=== PATIENT | female | born 1940 | race Caucasian/White ===

== ENCOUNTER 2017-07-23 05:48 | Day surgery (SDC) | payer MEDICARE, BC ==
[2017-07-23] VITALS (23 sets, daily range): BP systolic 97–159; BP diastolic 40–90; PULSE 53–82; RESP 17–26; Ht 162.6 cm; Wt 49.6 kg
[~2017-07-23] VITALS: Ht 162.6 cm; Wt 49.6 kg
[2017-07-23] MEDS ORDERED: LACTATED RINGER'S 1,000 ML IV SCH (06:00)
[2017-07-23] MEDS ORDERED: GABAPENTIN 300 MG CAP PO ONE (06:00)
[2017-07-23] MEDS ORDERED: traMADol 50 MG TAB PO ONE (06:00)
[2017-07-23] MEDS ORDERED: BUPIVACAINE 0.5% (SDV) 30 ML, morphine SULFATE (PF) 8 MG, EPINEPHrine 0.3 MG, KETOROLAC... IRR SCH ×7 (06:00)
[2017-07-23] MEDS ORDERED: CEFAZOLIN 2 GM/50 ML (PMX) 50 ML IVPB ONE (06:00)
[2017-07-23] MEDS ORDERED: DEXAMETHASONE 1 MG TAB PO ONE (06:00)
[2017-07-23] MEDS ORDERED: TRANEXAMIC ACID 1,000 MG in SOD CHLORIDE 0.9% 100 ML IVPB ONE (06:00)
[2017-07-23] MEDS ORDERED: PROPOFOL 20 ML ONE (06:45)
[2017-07-23] MEDS ORDERED: METOCLOPRAMIDE 10 MG INJ ONE (06:46)
[2017-07-23] MEDS ORDERED: MIDAZOLAM 1 MG/ML 2 ML INJ ONE (06:46)
[2017-07-23] MEDS ORDERED: FENTAnyl 50 MCG/ML VIAL ONE (06:46)
[2017-07-23] MEDS ORDERED: THROMBIN 5000 UNIT VIAL ONE (06:48)
[2017-07-23] MEDS ORDERED: CA CHLORIDE 10% 10 ML SYRINGE ONE (06:48)
[2017-07-23] MEDS ORDERED: ROPIVACAINE 0.5 % 30 ML VIAL ONE (06:48)
[2017-07-23] MEDS ORDERED: POLYMYXIN/BACITRACIN 1L IRRIG ONE (06:48)
--- NOTE | 2017-07-23 06:51 | HPN ---
Date/Time of Note Date/Time of Note DATE: 07/23/17 TIME: 06:51 Interval H&P Admission Note Pt. seen H&P reviewed: No system changes ARMANDO LAZAR MD Jul 23, 2017 06:51
[2017-07-23] MEDS ORDERED: BUPIVACAINE 0.5%/EPI (SDV) 10 ML INJ ONE (06:53)
[2017-07-23] MEDS ORDERED: hydrALAzine 20 MG INJ ONE (07:17)
[2017-07-23] MEDS ORDERED: ONDANSETRON 4 MG INJ ONE ×2 (07:20→10:01)
[2017-07-23] MEDS ORDERED: METOCLOPRAMIDE 10 MG INJ IV PRN (07:30)
[2017-07-23] MEDS ORDERED: ONDANSETRON 4 MG INJ IV PRN ×2 (07:30→09:00)
[2017-07-23] MEDS ORDERED: DIPHENHYDRAMINE 50 MG INJ IV PRN ×2 (07:30→09:00)
[2017-07-23] MEDS ORDERED: LABETALOL HCL 20MG INJ IV PRN (07:30)
[2017-07-23] MEDS ORDERED: hydrALAzine 20 MG INJ IV PRN (07:30)
[2017-07-23] MEDS ORDERED: MEPERIDINE 25 MG INJ IV PRN (07:30)
[2017-07-23] MEDS ORDERED: HYDROmorphONE (0.2 MG/ML) 10ML SYG IV PRN ×3 (07:30)
[2017-07-23] MEDS ORDERED: TOBRAMYCIN 1.2 GM POWDER ONE (07:35)
[2017-07-23] MEDS ORDERED: OXYCODONE/ACETAMINOPHEN (5/325) TAB PO PRN ×2 (09:00)
[2017-07-23] MEDS ORDERED: MAGNESIUM HYDROXIDE 30ML CUP PO PRN (09:00)
[2017-07-23] MEDS ORDERED: morphine 4 MG/ML VIAL IV PRN (09:00)
[2017-07-23] MEDS ORDERED: morphine 2 MG INJ IV PRN (09:00)
[2017-07-23] MEDS ORDERED: KETOROLAC 15 MG INJ IV PRN (09:00)
[2017-07-23] MEDS ORDERED: ACETAMINOPHEN 500 MG TAB PO PRN (09:00)
[2017-07-23] MEDS ORDERED: ZOLPIDEM 5 MG TAB PO PRN (09:00)
--- NOTE | 2017-07-23 09:19 | OPR ---
Date/Time of Note Date/Time of Note DATE: 07/23/17 TIME: 09:12 Operative Report Procedure Date: Jul 23, 2017 Preoperative Diagnosis Right shoulder primary arthritis Postoperative Diagnosis Right shoulder primary arthritis Operation Performed Right total shoulder arthroplasty Surgeon: ARMANDO LAZAR MD Asset Protection Assistant: ALOK REY MD Anesthesia Type: general Estimated Blood Loss: 10 - 50 ml's Transfusion Required: no Pt Condition Post Procedure: stable Disposition: PACU Procedure Description CHEF & OWNER SURGEON: Alok Rey MD was asked to be present for this case at my request. Assistance was necessary as a result of the highly technical nature of this operation. When performing an open total shoulder replacement, it is critical to have a trained creative assistant who is an expert in handling the extremity and assisting the surgeon in tasks such as suture management and knot-tying techniques as well as implants. This assistance cannot be performed by a electroplating technician, as it is considered an integral part of the procedure and the creative assistant should be compensated for their time. PROCEDURE IN DETAIL: Following the administration of general anesthesia supplemented with a peripheral nerve block for postoperative pain control, the patient was examined under anesthesia. Examination of the right shoulder revealed very significant stiffness including a forward flexion of about 100 abduction 90 maximal external rotation 90 with severe crepitus. The patient was then placed in the beach chair position. Sterile prep and drape was then undertaken. An extended deltopectoral incision was then carried through the interval exposing the conjoined tendon and retracting it medially. The subscapularis was detached. THe biceps tendon was seen to have moderate inflammation. The intraarticular portion was released and the tendon was tenodesed to the groove with #2 sutures. THe joint had severe DJD with multiple loose bodies and large osteophytes. The superior cuff was normal. THe humerus was osteotomized following osteophyte remova. The glenoid was then exposed. The glenoid was prepared for a Depuy anchor peg glenoid, small size. The actual component was then implanted with solid fixation with cement. The humerus was then prepared up to a 14 mm Depuy component with solid fixation. A 40 mm x 15 mm humeral head was applied with solid fixation. THe subscapularis was re-approximated with #2 Permanent sutures that were passed around the humeral component. A water-tight closure was completed. The arm was taken through full range of motion with no evident instability. The joint was then thoroughly irrigated, the deep tissues were approximated using #1 suture followed by closure of the deep layer using 2-0 Monocryl. The skin was closed using 4-0 Monocryl suture, and a waterproof dressing. An Ultrasling was then applied. The patient was awakened and transported to the recovery room in stable condition. Estimated blood loss for this procedure was [50 cc]. Radiographs will be obtained in the recovery room. ARMANDO LAZAR MD Jul 23, 2017 09:19
--- NOTE | 2017-07-23 09:21 | PDOCDIS ---
Discharge Instructions DIAGNOSIS Discharge Diagnosis Right shoulder arthritis CONDITION Patient Condition: Good HOME CARE INSTRUCTIONS: Diet Instructions: Regular ACTIVITY: Activity Restrictions: Slowly Increase Activity Keep Limb Elevated Bathing Restrictions: Shower FOLLOW UP/APPOINTMENTS Follow-up Plan Two weeks SCHOOL/WORK RELEASE May return to School/Work with: With Restrictions School/Work Release Comment: five pound table top usage for six weeks ARMANDO LAZAR MD Jul 23, 2017 09:20
--- NOTE | 2017-07-23 09:47 | RADRPT ---
PROCEDURE: XR Shoulder. CLINICAL INDICATION: Postop. Follow-up. Status post right shoulder arthroplasty. TECHNIQUE: 2 views of the right shoulder are available for review. COMPARISON: None available FINDINGS: Right shoulder prosthesis is identified. Alignment is anatomic. Postsurgical changes are seen. Ap pearances are appropriate. IMPRESSION: 1. Appropriate appearances with anatomic alignment, status post right shoulder arthroplasty. RPTAT: HMJB .Rodrigo Green MD, MD Date Time Electronically viewed and signed by .Rodrigo Green MD, on 07/23/2017 09:46 .B/
[2017-07-23] MEDS ORDERED: TRANEXAMIC ACID 1,000 MG in SOD CHLORIDE 0.9% 100 ML IV SCH (10:00)
[2017-07-23] MEDS ORDERED: HYDROmorphONE 2 MG/ML SYG ONE (10:01)
[2017-07-23] MEDS: SENNA/DOCUSATE NA (8.6MG/50MG) TAB PO SCH ×3 (10:30→21:49)
[2017-07-23] MEDS: DEXAMETHASONE 2 MG TAB PO SCH ×3 (12:00→23:53)
[2017-07-23] MEDS: CEFAZOLIN 1 GM/50 ML (PMX) 50 ML IVPB SCH ×2 (12:24→19:03)
[2017-07-23] MEDS ORDERED: GABAPENTIN 300 MG CAP PO SCH (21:00)
[2017-07-24 00:07] VITALS: BP 91/54; RESP 18
[2017-07-24] MEDS: CEFAZOLIN 1 GM/50 ML (PMX) 50 ML IVPB SCH (02:44)
[2017-07-24] MEDS ORDERED: OXYCODONE/ACETAMINOPHEN (5/325) TAB PO PRN ×3 (03:07→08:30)
[2017-07-24 05:36] VITALS: BP 90/45; PULSE 55; RESP 18
[2017-07-24] MEDS: DEXAMETHASONE 2 MG TAB PO SCH (05:50)
--- NOTE | 2017-07-24 06:43 | PN ---
Date/Time of Note Date/Time of Note DATE: 07/24/17 TIME: 06:42 24 hour Interval Summary Patient is awake and alert with minimal pain. Physical Exam Physical examination: Her wound is clean and dry. She is neurologically intact. She has no signs of DVT. Vital Signs Date Time Temp Pulse Resp B/P Pulse Ox O2 Delivery O2 Flow Rate FiO2 07/24/17 05:36 97.8 55 18 90/45 98 Room Air Intake and Output 07/23/17 07/23/17 07/24/17 15:00 23:00 07:00 Intake Total 1350 ml 530 ml 550 ml Output Total 50 ml 450 ml Balance 1300 ml 80 ml 550 ml VTE Prophylaxis VTE Prophylaxis Intervention: anti-embolic stocking Lines/Catheters IV Catheter Type: Saline Lock Weller in Place: No Assessment/Plan Assessment/Plan Assessment: Status post right total shoulder replacement. Plan: She will begin physical therapy this morning. She will be discharged after that episode of care. ARMANDO LAZAR MD Jul 24, 2017 06:43
--- NOTE | 2017-07-24 06:45 | DS ---
Date/Time of Note Date/Time of Note DATE: 07/24/17 TIME: 06:43 Discharge Summary Admission/Discharge Info Admit Date/Time July 23, 2017 Discharge Date/Time July 24, 2017 following therapy Discharge Diagnosis Right shoulder arthritis Patient Condition: Good Procedures Right total shoulder arthroplasty Hx of Present Illness Pain and stiffness in the right shoulder for many years Hospital Course Patient was admitted and underwent an uncomplicated procedure. Postoperative day #1 she was afebrile wound was clean and dry she was to be discharged after therapy followed up in the office in 2 weeks. Primary Care Provider Not On Staff Doctor ARMANDO LAZAR MD Jul 24, 2017 06:45
[2017-07-24 08:25] VITALS: BP 105/52; RESP 18
[2017-07-24] MEDS ORDERED: ASPIRIN 81 MG TAB PO SCH (09:00)
[2017-07-24] MEDS: SENNA/DOCUSATE NA (8.6MG/50MG) TAB PO SCH (09:04)
== END 2017-07-24 11:52 | disposition home or self-care (01) ==
LOC: SDS 05:48 → MS1 10:11 → SDS 07-24 11:52
PROVIDERS: ATTEND Orthopaedic Surgery
DX: M13.811 Other specified arthritis, right shoulder (principal)
CPT/HCPCS: 23472; 73030; 86999; 88304; 88311; 97166; C1776; J0171; J0360; J0690; J0735; J1885; J2250; J2274; J2405; J2765; J2795; J3010; J3370; J7120; J1170

== ENCOUNTER 2018-06-17 07:05 | Inpatient (IN) | END 2018-06-18 12:49 | disposition home or self-care (01) | DRG 483 ==